=== PATIENT | male | born 1945 | race Caucasian/White ===

== ENCOUNTER 2019-08-08 16:39 | Outpatient (REF) | payer BC, SELFPAY ==
[2019-08-08 18:39] LABS: ALT 29 U/L (16-63); Anion Gap 10.6 mmol/L (3-11); BUN 22 mg/dL (7-18); CO2 25.4 mmol/L (21.0-32.0); CREATININE 1.15 mg/dL (0.70-1.30); Calcium 8.7 mg/dL (8.5-10.1); Chloride 107 mmol/L (98-107); Glucose 115 mg/dL (74-106); LDL CHOLESTEROL 72 mg/dL (<100); Potassium 3.9 mmol/L (3.5-5.1); Sodium 143 mmol/L (136-145)
[2019-08-12 11:21] LABS: PSA, Screening 23.8 ng/mL (0.0-6.5)
== END 2019-08-08 16:59 ==
LOC: NCHCN 16:39
PROVIDERS: PCP Internal Medicine; Visit Provider Internal Medicine
DX: Z00.00 Encounter for general adult medical examination without abnormal findings (principal); E78.5 Hyperlipidemia, unspecified; E66.3 Overweight; Z12.5 Encounter for screening for malignant neoplasm of prostate
CPT/HCPCS: 80048; 83721; 84153; 84460

== ENCOUNTER 2021-04-08 16:31 | Outpatient (REF) | payer BC, SELFPAY ==
[2021-04-08 19:32] LABS: Abs Immature Grans 0.04 10^3/uL (0.0-0.06); Absolute Basophil Count 0.04 10^3/uL (0.0-0.2); Absolute Eosinophil Count 0.06 10^3/uL (0.0-0.7); Absolute Lymphocyte Count 0.37 10^3/uL (1.2-3.4); Absolute Neutrophil Count 3.54 10^3/uL (1.2-6.7); Basophils % 0.9; Eosinophils % 1.3; Immature Grans % 0.9; Lymphocytes % 8.3; MCH 18.8 pg (27.0-33.0); MCHC 26.4 % (32.0-36.0); MCV 71.1 fL (80-95); MPV 11.6 fL (8.0-11.0); Neutrophils % 79.6; Nucleated RBC 0 %; Platelet Count 274 10^3/uL (130-400); RBC 2.56 10^6/uL (4.36-5.78); RDW 19.1 % (11.8-14.1); RDW-SD 49.1 fL; WBC 4.45 10^3/uL (4.4-10.8)
[2021-04-08 19:39] LABS: ALT 16 U/L (16-63); AST 14 U/L (15-37); Albumin 3.6 g/dL (3.4-5.0); Alkaline Phosphatase 86 U/L (46-116); Anion Gap 9.8 mmol/L (3-11); BUN 22 mg/dL (7-18); Bilirubin, Total 0.2 mg/dL (0.2-1.0); CO2 22.2 mmol/L (21.0-32.0); CREATININE 0.9 mg/dL (0.70-1.30); Calcium 8.3 mg/dL (8.5-10.1); Chloride 110 mmol/L (98-107); Glucose 113 mg/dL (74-106); Potassium 3.9 mmol/L (3.5-5.1); Sodium 142 mmol/L (136-145); Total Protein 6.5 g/dL (6.4-8.2)
[2021-04-08 19:52] LABS: HCT 18.2 % (40.0-50.0)
[2021-04-08 19:53] LABS: Diff Comment RBC Morph Reviewed; HGB 4.8 g/dL (13.5-17.5)
[2021-04-08 20:13] LABS: Anisocytosis 3+; Hypochromasia 3+
[2021-04-08 20:14] LABS: Microcytosis 3+; Poikilocytes 2+
== END 2021-04-08 16:32 | disposition home or self-care (01) ==
LOC: NCHCN 16:31
PROVIDERS: PCP Internal Medicine; Visit Provider Nurse Practitioner Family
DX: R42 Dizziness and giddiness (principal)
CPT/HCPCS: 80053; 85025

== ENCOUNTER 2021-04-08 21:53 | Observation (INO) | payer BC, SELFPAY ==
[2021-04-08] VITALS (22 sets, daily range): BP systolic 111–151; BP diastolic 43–72; PULSE 46–93; RESP 16–27; TEMP 36.7–36.8; O2SAT 97–100
--- NOTE | 2021-04-08 21:57 | W.ED.GENAD ---
Discharge Plan Disposition Patient Disposition: [facility] INPATIENT Condition: Fair Discharge Details Clinical Impression: Symptomatic anemia Primary Care Provider: Pete Vicente ED Provider: Pete Thorne [place] Meds and New Rx's Prescriptions: No Action tamsulosin [Flomax] 0.4 mg Capsule 0.4 mg PO DAILY RF: 0 simvastatin 20 mg Tablet 20 mg DAILY RF: 0 aspirin 81 mg Tablet 81 mg PO DAILY RF: 0 topiramate 200 mg Tablet 200 mg DAILY RF: 0 Medical Decision Making Patient has had a 2 to 3-week history of general unwell feeling with dyspnea with exertion. He had laboratory studies done today and was referred to ED for hemoglobin of 4. He denies black or bloody stool but reports he was Hemoccult positive in PCP office today. Will place IV and obtain labs including repeat hemoglobin to confirm, and type and screen. Patient consents to transfusion if needed. Hemoglobin confirmed to be 4.9. EKG with some LVH otherwise unremarkable. Other labs look okay. He is typed and screened and consented for for unit pRBC. Case discussed with hospitalist. Patient accepted to hospitalist service. Patient ordered for 4 units of pRBC will go to Med/Surg overnight. Medical Records Medical records reviewed: Yes I reviewed the patient's medical records. Medical records narrative: obtained from PCP office Lab Data Lab results reviewed: Yes I reviewed the patient's lab results. ECG Data Attestation: I personally reviewed and interpreted this ECG (s) as follows: Prior ECG tracings: not available for review Interpretation: see EKG HPI General Mode of arrival: wheelchair. Date/Time Provider Initiated Documentation: 04/08/21 21:56. Limitations to Documentation: no limitations. Information obtained by: patient and RN notes reviewed. HPI Narrative: Patient presents to ED on referral from primary care coverage with a hemoglobin of 4. Patient had been seen by primary care today for general malaise, fatigue, weakness, difficulty with exertion. Subsequently sent for labs and on-call physician called this evening with a hemoglobin of 4. Patient denies any black or dark stool but report Hemoccult positive in the office today. Patient has been using Advil fairly regularly because of headaches. He denies any chest pain or tightness. He denies any abdominal pain or vomiting. He denies any fever or cough. Related Data Home Medications Medication Instructions Recorded Confirmed aspirin 81 mg PO DAILY 04/08/21 04/08/21 simvastatin 20 mg DAILY 04/08/21 04/08/21 tamsulosin [Flomax] 0.4 mg PO DAILY 04/08/21 04/08/21 topiramate 200 mg DAILY 04/08/21 04/08/21 Allergies Allergy/AdvReac Type Severity Reaction Status Date / Time No Known Allergies Allergy Unverified 04/08/21 22:03 Review of Systems Narrative: 05/27 Review of Systems completed and is negative except as stated above in HPI (Systems reviewed: Const, Eyes, ENT, Resp, CV, GI, , MSK, Skin, Neuro) PFSH Medical History Hypercholesterolemia Migraine Prostate cancer Social History Smoking/Tobacco Use Status: Never Smoking risk assessment performed?: Yes Alcohol Intake: never Drug use: Never Substance use type: does not use Do you feel safe at home: Yes Do you feel safe in your relationship?: Yes Exam Narrative Exam Narrative: Const: WDWN elderly male in NAD. HEENT: NC/AT. Normal facial exam. Eyes: Pale conjunctiva. Neck: Supple. Trachea midline. Lungs: Normal respiratory effort. Lungs are clear. Cor: RRR without murmur/gallop. Good radial pulses. GI: Soft. NT/ND. No guarding or rebound. Neuro: A+O x 3. Normal speech, mentation. Cranial nerves II - XII grossly intact. No gross motor or sensory deficit. Ext: No C/C/E. Skin: Warm and dry without rash.
--- NOTE | 2021-04-08 22:00 | RT.EKG_ITS ---
APPROVED REPORT Exam: Resting ECG Reason for Exam: weakness Patient Location: E HR:77 bpm ECG Measurements Heart Rate 77 AXIS ME 194 P 44 QRSd 105 QRS 2 QT 392 T -14 QTc 443 Conclusion Sinus rhythm...normal P axis, V-rate 60- 99 Probable left ventricular hypertrophy...multiple LVH criteria Normal [place] I have reviewed and interpreted ECG and agree with software generated interpretation.
[2021-04-08 22:29] LABS: HCT 18.3 % (40.0-50.0); HGB 4.9 g/dL (13.5-17.5)
[2021-04-08 22:38] LABS: INR 1.1 (0.9-1.1); Prothrombin Time 10.8 sec (9.3-11.0)
[2021-04-08 23:04] LABS: ALT 17 U/L (16-63); AST 12 U/L (15-37); Albumin 3.7 g/dL (3.4-5.0); Alkaline Phosphatase 94 U/L (46-116); Anion Gap 11.6 mmol/L (3-11); BUN 22 mg/dL (7-18); Bilirubin, Total 0.2 mg/dL (0.2-1.0); CO2 20.4 mmol/L (21.0-32.0); CREATININE 1.1 mg/dL (0.70-1.30); Calcium 8.3 mg/dL (8.5-10.1); Chloride 108 mmol/L (98-107); Glucose 136 mg/dL (74-106); Potassium 3.4 mmol/L (3.5-5.1); Sodium 140 mmol/L (136-145); Troponin I < 0.05 ng/mL (<0.06)
[2021-04-08 23:21] LABS: Source Nasal/Nares
--- NOTE | 2021-04-08 23:56 | W.PM.HP.N ---
Date of service: 04/08/21 Time of Service: 23:34 Assessment and Plan Assessment and plan (1) Symptomatic anemia: Status: Acute Assessment and plan: GI bleed of uncertain time course. Last hgb was 15 about 8 years ago. Likely subacute as no bleeding noted. EKG and troponin reassuring that the stress isn't causing a cardiac event. Transfusion protocol already started in the ED. Follow up hgb 2 hours after transfusions. No h/o CHF, but we should montitor fluid status. He has no known cardiac history. with FOB positive GI bleed likely cause. BUN up slightly. He has stopped NSAIDs, will cover with PPI for now. Consult surgery to consider EGD/colo - urgency depending on his response to transfusion and stability. (2) Prostate cancer: Status: Chronic Assessment and plan: Treated in past, no symptoms to suggest recurrence. 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 (3) Migraine: Status: Chronic Assessment and plan: some increased HERNANDEZ this week, but this is chronic, benign neurologic exam today. Continue topiramate. (4) DVT prophylaxis: Status: Acute Assessment and plan: Holding ASA and not blood thinners due to likely GI bleed. TEDs/SCDs (5) Discharge planning issues: Status: Acute Assessment and plan: stable hemodynamically here. No active bleeding, so I think he will be safe on the floor. He is full code. History of Present Illness History of Present Illness Chief Complaint: dyspnea on exertion, fatigue Narrative: 75 yo M, history of prostate cancer treated in 2019 with radiation therapy, history of migraines, who presented to his primary care this morning with at least 3 weeks of dyspenea on exertion, general fatigue, and lightheadedness with standing or bending over. It seemed to be getting worse. He also describes feeling his heart beating in his ears. Initial evaluation in the clinic included a reassuring EKG but was notable for occult blood in stool on rectal exam. He was orthostatic with pulse rising from 59 to 85 from lying to standing, though there was not a significant blood pressure drop. Labs were drawn. He was later called by the on-call clinician for a hemoglobin of 4.8 and told to go to the emergency room. He denies any visible blood in the stool or melena, or other bleeding. He has been taking 600mg ibuprofen 2-3 x day for the past week as his chronic headaches have been worse. Bilateral frontal headaches. He hasn't felt nausea or abdominal pain or relflux. He hasn't had chest pain, though he does feel like his heart is beating faster. Of note, he has never had a colonoscopy. He denies any history of ulcers. Review of Systems Constitutional Constitutional: Denies anorexia, Denies chills, Reports fatigue, Denies fever(s), Reports headache(s), Reports lethargy, Denies poor appetite and Denies weight loss Eyes Eyes: Denies change in vision, Denies irritation, Denies eye pain and Denies spots in vision ENT Ears, Nose, Mouth, and Throat: Denies abnormal hearing, Denies vertigo, Reports dizziness, Denies otalgia, Reports headache(s), Denies nasal congestion, Denies nasal discharge, Denies sinus pain and Denies sore throat Cardiovascular Cardiovascular: Reports lightheadedness, Denies palpitations, Reports dyspnea on exertion and Denies orthopnea Respiratory Respiratory: Denies cough, Denies excessive phlegm production, Reports dyspnea on exertion and Denies wheezing Gastrointestinal Gastrointestinal: Denies abdominal pain, Denies melena, Denies constipation, Denies early satiety, Denies dyspepsia, Denies heartburn, Denies diarrhea, Denies nausea and Denies vomiting Genitourinary Genitourinary: Denies hematuria, Denies dysuria and Denies urinary incontinence Musculoskeletal Musculoskeletal: Denies back pain and Denies arthralgias Integumentary/Breasts Skin/Breast: Denies bleeding lesions, Denies rash, Denies skin ulcer, Denies unusual bruising and Denies jaundice Neurologic Neurologic: Denies abnormal hearing, Denies vertigo, Reports dizziness, Reports headache(s), Denies localized weakness and Denies sensory deficit Psychiatric Psychiatric: Denies mood swings and Denies panic attacks Endocrine Endocrine: Reports fatigue and Denies palpitations Hematologic/Lymphatic Hematologic/Lymphatic: Denies easy bleeding Allergic/Immunologic Allergic/Immunologic: Denies wheezing PFSH Medical History Hypercholesterolemia Migraine Prostate cancer Social History Smoking/Tobacco Use Status: Never Smoking risk assessment performed?: Yes Alcohol Intake: never Drug use: Never Substance use type: does not use Agree to transfusion: Yes Do you feel safe at home: Yes Do you feel safe in your relationship?: Yes Additional Social history: Lives with Tal on farm in [facility]. 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 Meds Allergies and Home Medications Allergies Allergy/AdvReac Type Severity Reaction Status Date / Time No Known Allergies Allergy Unverified 04/08/21 22:03 Home Medications Medication Instructions Recorded Confirmed Type aspirin 81 mg PO DAILY 04/08/21 04/08/21 History simvastatin 20 mg DAILY 04/08/21 04/08/21 History tamsulosin [Flomax] 0.4 mg PO DAILY 04/08/21 04/08/21 History topiramate 200 mg DAILY 04/08/21 04/08/21 History Exam Narrative Exam Narrative: GEN: Alert and oriented, pleasent and cooperative, gives linear history. No acute distress at rest. HEENT: Head atraumatic. Conjunctiva clear, no icterus. PEERL, EOMI. no rhinorrhea. MMM, OP benign. Neck is supple with no masses or lymphadenopathy, trachea midline. Spontaneous venous pulsations noted on direct ophthalmologic retinal exam. LUNGS: CTAB with normal effort CV: RRR with no murmurs, gallops, or rubs. ABD: +BS, soft, NT/ND. no masses or HSM EXT: no cyanosis, clubbing. trace cinthia ankle edema. legs not tender. MSK: No joint redness or swelling NEURO: CN 2-12 grossly intact. Visual field intact to controntation. Nl FNF. Negative pronator drift. Normal sensation, normal movement of 4 extremities. Mild tremor intermittently when using hands. Normal speech, other than intermittent stutter. Normal coordination SKIN: No rashs or open wounds. pale PSYCH: normal mood, slightly anxious affect. Results Imaging EKG: report reviewed and image reviewed (no signs ischemia, NSR) Labs Result diagrams: 04/08/21 22:04 04/08/21 22:04 Labs: Laboratory Results - last 24 hr 04/08/21 04/08/21 04/08/21 22:04 22:04 22:04 Hgb 4.9 L* Hct 18.3 L* PT INR Sodium 140 Potassium 3.4 L Chloride 108 H Carbon Dioxide 20.4 L Anion Gap 11.6 H BUN 22 H Creatinine 1.1 Estimated GFR/1.73 m2 >= 60.00 Glucose 136 H Calcium 8.3 L Magnesium 2.0 Total Bilirubin 0.2 AST 12 L ALT 17 Alkaline Phosphatase 94 Troponin I < 0.05 Total Protein 7.0 Albumin 3.7 COVID-19 Source Patient ABO/Rh Antibody Screen Crossmatch 04/08/21 04/08/21 04/08/21 22:04 22:11 23:17 Hgb Hct PT 10.8 INR 1.1 Sodium Potassium Chloride Carbon Dioxide Anion Gap BUN Creatinine Estimated GFR/1.73 m2 Glucose Calcium Magnesium Total Bilirubin AST ALT Alkaline Phosphatase Troponin I Total Protein Albumin COVID-19 Source Nasal/Nares Patient ABO/Rh O Positive Antibody Screen NEGATIVE Crossmatch See Detail Last Vital Signs Temp 36.8 C 04/08/21 23:42 Pulse 63 04/08/21 23:42 Resp 16 04/08/21 23:42 BP 127/61 04/08/21 23:42 Pulse Ox 98 04/08/21 23:42
[2021-04-09] VITALS (25 sets, daily range): BP systolic 89–147; BP diastolic 48–80; PULSE 51–99; RESP 16–22; TEMP 36.3–37.4; O2SAT 67–100; BMI 31.3
[2021-04-09 00:12] LABS: COVID-19 PCR Negative (Negative)
[2021-04-09] MEDS: Topiramate 100 MG TAB 200 MG PO ×2 (01:21→21:27)
--- NOTE | 2021-04-09 08:07 | W.SURGCON ---
[facility] Medical History Hypercholesterolemia Migraine Prostate cancer Social History Smoking/Tobacco Use Status: Never Smoking risk assessment performed?: Yes Alcohol Intake: never Drug use: Never Substance use type: does not use Agree to transfusion: Yes Do you feel safe at home: Yes Do you feel safe in your relationship?: Yes Additional Social history: Lives with Tal on farm in [facility]. 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 Results Last Vital Signs Temp 37.4 C 04/09/21 07:18 Pulse 60 04/09/21 07:18 Resp 22 04/09/21 07:18 BP 116/63 04/09/21 07:18 Pulse Ox 96 04/09/21 07:18 Labs Result diagrams: 04/08/21 22:04 04/08/21 22:04 Labs: Laboratory Results - last 24 hr 04/08/21 04/08/21 04/08/21 22:04 22:04 22:04 Hgb 4.9 L* Hct 18.3 L* PT INR Sodium 140 Potassium 3.4 L Chloride 108 H Carbon Dioxide 20.4 L Anion Gap 11.6 H BUN 22 H Creatinine 1.1 Estimated GFR/1.73 m2 >= 60.00 Glucose 136 H Calcium 8.3 L Magnesium 2.0 Total Bilirubin 0.2 AST 12 L ALT 17 Alkaline Phosphatase 94 Troponin I < 0.05 Total Protein 7.0 Albumin 3.7 COVID-19 Source SARS-CoV-2 (PCR) Patient ABO/Rh Antibody Screen Crossmatch 04/08/21 04/08/21 04/08/21 22:04 22:11 23:17 Hgb Hct PT 10.8 INR 1.1 Sodium Potassium Chloride Carbon Dioxide Anion Gap BUN Creatinine Estimated GFR/1.73 m2 Glucose Calcium Magnesium Total Bilirubin AST ALT Alkaline Phosphatase Troponin I Total Protein Albumin COVID-19 Source Nasal/Nares SARS-CoV-2 (PCR) Negative Patient ABO/Rh O Positive Antibody Screen NEGATIVE Crossmatch See Detail
--- NOTE | 2021-04-09 08:34 | SCONE_ITS ---
Assessment and Plan Assessment and plan (1) Symptomatic anemia: Status: Acute Assessment and plan: A// 75 y/o male with anemia, Hgb 4. Awaiting recheck following 4 units of PRBC. DDX- Radiation proctitis vs GI Bleed following heavy NSAID use Patient has never had a Colonoscopy. He denies having any bowel habit changes. Recent radiation treatments for Prostate Cancer. He denies having any abdominal pain, dyspnea or chest pain. Continue NPO status -Discussed colonoscopy bowel prep as well as the procedure. Discussed possible complications of the procedure to include bleeding, pain, perforation, missed small lesion/polyp, sore throat, aspiration and adverse reaction to the medications. Questions were answered to patient?s satisfaction. No guarantees were implied or given. -Discussed Upper endoscopy procedure and the need to be NPO prior. Discussed possible complications of the procedure to include bleeding, pain, perforation, missed small lesion/polyp/ulcers, sore throat, aspiration and adverse reaction to the medications or sedation. Questions were answered to patient?s satisfaction. No guarantees were implied or given. At this time the patient declines proceeding with EGD or Colonoscopy. He wishes to hold off on this given his concerns for sedation. Reassured the patient this decision is his to make and that if he changes his mind, that we can revisit this conversation. P// Will continue to follow, await Hgb recheck. History of Present Illness History of Present Illness Chief Complaint: Anemia Narrative: 75 y/o male with a history of prostate cancer and migraines presented to the ER for complaints of 2-3 weeks of feeling unwell and dyspnea with exertion. He was found to have a hemoglobin of 4. He was admitted for 4 units of packed RBCs. This morning he reports feeling better. He admits to having had a recent rectal exam with his PCP, which was remarkable for blood. He denies noting any black tarry or bloody stools. Also, of note he reports recent completion of radiation treatments to his prostate, which he has been under going for the past 8 months. He describes having frequent headaches as of late and has been taking quite a bit of advil to relieve his symptoms. He states that for the past 3 weeks he has not been able to walk out to his barn, which was a significant change for him. Denies smoking, tobacco use, ETOH use, Marijuana or any other recreational or illegal substances use. He states that he has had very bad experiences previously with anesthesia, at [facility]. He states that he went blind for several weeks following the sedation and he does not wish to proceed with any procedures which will require sedation, unless he absolutely has to. [facility] Medical History Hypercholesterolemia Migraine Prostate cancer Social History Smoking/Tobacco Use Status: Never Smoking risk assessment performed?: Yes Alcohol Intake: never Drug use: Never Substance use type: does not use Agree to transfusion: Yes Do you feel safe at home: Yes Do you feel safe in your relationship?: Yes Additional Social history: Lives with Tal on farm in [facility]. 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 Exam Const General: cooperative and comfortable Orientation: alert and oriented x3 Resp Effort & Inspection: normal respiratory effort, no audible wheezes and no cough GI Inspection: normal to inspection Palpation: soft, no guarding and nontender Auscultation: normal bowel sounds Results Last Vital Signs Temp 37.4 C 04/09/21 07:18 Pulse 60 04/09/21 07:18 Resp 22 04/09/21 07:18 BP 116/63 04/09/21 07:18 Pulse Ox 96 04/09/21 07:18 Labs Result diagrams: 04/08/21 22:04 04/08/21 22:04 Labs: Laboratory Results - last 24 hr 04/08/21 04/08/21 04/08/21 22:04 22:04 22:04 Hgb 4.9 L* Hct 18.3 L* PT INR Sodium 140 Potassium 3.4 L Chloride 108 H Carbon Dioxide 20.4 L Anion Gap 11.6 H BUN 22 H Creatinine 1.1 Estimated GFR/1.73 m2 >= 60.00 Glucose 136 H Calcium 8.3 L Magnesium 2.0 Total Bilirubin 0.2 AST 12 L ALT 17 Alkaline Phosphatase 94 Troponin I < 0.05 Total Protein 7.0 Albumin 3.7 COVID-19 Source SARS-CoV-2 (PCR) Patient ABO/Rh Antibody Screen Crossmatch 04/08/21 04/08/21 04/08/21 22:04 22:11 23:17 Hgb Hct PT 10.8 INR 1.1 Sodium Potassium Chloride Carbon Dioxide Anion Gap BUN Creatinine Estimated GFR/1.73 m2 Glucose Calcium Magnesium Total Bilirubin AST ALT Alkaline Phosphatase Troponin I Total Protein Albumin COVID-19 Source Nasal/Nares SARS-CoV-2 (PCR) Negative Patient ABO/Rh O Positive Antibody Screen NEGATIVE Crossmatch See Detail
--- NOTE | 2021-04-09 08:54 | INITIAL_ITS ---
- If Service Date Differs Date of service: 04/09/21 Time of Service: 08:54 Care Management Initial Assess REASON FOR HOSPITALIZATION:: anemia PAST MEDICAL HISTORY/PAST SURGICAL HISTORY:: Medical History . Hypercholesterolemia. Migraine. Prostate cancer PREVIOUS FUNCTIONAL STATUS/SOCIAL/FAMILY SUPPORTS:: Yudi, who prefers to be called Nabeel, lives in a single family home with his Queenie in [place], [place] 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 Nabeel and Queenie do not have any children. He is independent at baseline and receives no services. CURRENT FUNCTIONAL STATUS:: Nabeel was sitting up in bed when CM met with him. He was trying to decide whether or not to have an EGD today. He was admitted last evening with symptomatic anemia; his H&H was 4.9 and 18.3.Nabeel had a very traumatic experience many years ago following anesthesia and he was concerned that the same thing would happen. It involved left sided weakness and profound confusion which lasted for quite some time. He had several episodes with extensive workups that were unable to identify a cause. After speaking to his doctor and his , Nabeel decided to go proceed as it is important to determine the cause of his anemia. ADVANCE DIRECTIVES:: none on file Has patient been provided with info about the portal/API?: Yes Did the patient sign up for the portal?: No CODE STATUS:: Full Code INSURANCE COVERAGE / FINANCIAL ISSUES:: BS CURRENT HOME/COMMUNITY SERVICES/EQUIPMENT:: none PRIMARY CARE PHYSICIAN:: Pete Vicente POTENTIAL DISCHARGE NEEDS:: Follow up with PCP and plan of care PATIENT/FAMILY EDUCATION NEEDS:: Review of discharge instructions, medications, follow up care, limitations, activity and Ask Me Three TRANSPORTATION:: via private vehicle with . PLAN:: Nabeel will likley be discharged home with no new services. He will follow up with his community providers and plan of care and transport with family. CM will continue to support Nabeel and his and assess for discharge planning concerns.
[2021-04-09] MEDS: Simvastatin 20 MG TAB PO (09:20)
[2021-04-09] MEDS: Normal Saline Flush 10 ML SYR IVP ×2 (09:20→15:54)
[2021-04-09] MEDS: Pantoprazole 40 MG VIAL IVP (09:20)
--- NOTE | 2021-04-09 09:33 | W.ANESPRE ---
General Info Date of Service Date Performed: 04/09/21 Height: 5 ft 10 in Weight: 99 kg Body Mass Index (BMI): 31.3 Meds Allergies and Home Medications Allergies Allergy/AdvReac Type Severity Reaction Status Date / Time No Known Allergies Allergy Unverified 04/08/21 22:03 Home Medication Medication Instructions Recorded aspirin 81 mg PO DAILY 04/08/21 simvastatin 20 mg DAILY 04/08/21 tamsulosin [Flomax] 0.4 mg PO DAILY 04/08/21 topiramate 200 mg DAILY 04/08/21 Current Visit Medications: Current Medications Generic Name Dose Route Start Last Admin Trade Name Freq PRN Reason Stop Dose Admin Dimethicone/Zinc Oxide 0 gm 04/08/21 23:46 Ignacio Protect Cream 142 Gm Tube TP PRN PRN Sodium Chloride 500 mls @ 0 mls/hr 04/08/21 22:07 Saline 500ml Bag IV PRN PRN As Directed IV Miscellaneous Supplies 1 each 04/08/21 22:15 Iv Access IV DIRECTED KE Pantoprazole Sodium 40 mg 04/09/21 08:30 04/09/21 09:20 Pantoprazole 40 Mg Vial IVP 40 mg DAILY KE Administration Simvastatin 20 mg 04/09/21 08:30 04/09/21 09:20 Simvastatin 20 Mg Tab PO 20 mg DAILY KE Administration Sodium Chloride 0 ml 04/08/21 22:07 04/09/21 09:20 Normal Saline Flush 10 Ml Syr IVP 10 ml PRN PRN Administration Tamsulosin HCl 0.4 mg 04/09/21 22:00 Tamsulosin 0.4 Mg Capcr PO HS KE Topiramate 200 mg 04/09/21 01:00 04/09/21 01:21 Topiramate 100 Mg Tab PO 200 mg HS KE Administration PFSH Active Problems Active Problems: Problem Status Onset Code Discharge planning issues Z02.9 DVT prophylaxis Z29.9 Symptomatic anemia D64.9 Prostate cancer C61 Migraine G43.909 Hypercholesterolemia E78.00 Medical History Medical History Hypercholesterolemia Migraine Prostate cancer Tobacco Smoking/Tobacco Use Status: Never Alcohol Alcohol Intake: never Substance Use Substance use: Never Substance use type: does not use Vital Signs and Lab Results Vital Signs Most Recent Vital Signs in EMR: Most Recent Vital Signs Temp Pulse Resp BP Pulse Ox 37.4 C 60 22 116/63 96 04/09/21 07:18 04/09/21 07:18 04/09/21 07:18 04/09/21 07:18 04/09/21 07:18 Lab Results Result Diagrams: 04/09/21 09:34 04/09/21 09:34 Blood Type / Crossmatch: Patient ABO/Rh O Positive 04/08/21 22:11 04/08/21 Antibody Screen NEGATIVE 04/08/21 22:11 04/08/21 Crossmatch See Detail 04/08/21 22:11 04/08/21 Complete Blood Count: White Blood Count 4.45 10^3/uL (4.4-10.8) 04/08/21 16:00 04/08/21 Red Blood Count 2.56 10^6/uL (4.36-5.78) L 04/08/21 16:00 04/08/21 Hemoglobin 8.1 g/dL (13.5-17.5) L 04/09/21 09:34 04/09/21 Hematocrit 26.6 % (40.0-50.0) L 04/09/21 09:34 04/09/21 Platelet Count 274 10^3/uL (130-400) 04/08/21 16:00 04/08/21 Complete Metabolic Panel: Sodium Level 141 mmol/L (136-145) 04/09/21 09:34 04/09/21 Potassium Level 3.8 mmol/L (3.5-5.1) 04/09/21 09:34 04/09/21 Chloride Level 110 mmol/L (98-107) H 04/09/21 09:34 04/09/21 Carbon Dioxide Level 20.4 mmol/L (21.0-32.0) L 04/09/21 09:34 04/09/21 Blood Urea Nitrogen 16 mg/dL (7-18) 04/09/21 09:34 04/09/21 Creatinine 1.0 mg/dL (0.70-1.30) 04/09/21 09:34 04/09/21 Estimated GFR/1.73 m2 >= 60.00 (mL/min/1.73m2) 04/09/21 09:34 04/09/21 Magnesium Level 2.0 mg/dL (1.8-2.4) 04/08/21 22:04 04/08/21 Calcium Level 8.4 mg/dL (8.5-10.1) L 04/09/21 09:34 04/09/21 Albumin 3.7 g/dL (3.4-5.0) 04/08/21 22:04 04/08/21 Glucose Level 107 mg/dL (74-106) H 04/09/21 09:34 04/09/21 Liver Function Panel: Alanine Aminotransferase (ALT/SGPT) 17 U/L (16-63) 04/08/21 22:04 04/08/21 Aspartate Amino Transf (AST/SGOT) 12 U/L (15-37) L 04/08/21 22:04 04/08/21 Coagulation Panel: INR International Normalized Ratio 1.1 (0.9-1.1) 04/08/21 22:04 04/08/21 Prothrombin Time 10.8 sec (9.3-11.0) 04/08/21 22:04 04/08/21 Cardiac Panel: Troponin I < 0.05 ng/mL (<0.06) 04/08/21 22:04 04/08/21 Arterial Blood Gas: No Data to Display Venous Blood Gas: No Data to Display Pancreas Panel: No Data to Display Thyroid Panel: No Data to Display Infectious Disease: Coronavirus (COVID-19)(PCR) Negative (Negative) 04/08/21 23:17 04/08/21 Coronavirus 2019 Source Nasal/Nares 04/08/21 23:17 04/08/21 Blood Cultures: No Data to Display Toxicology Panel: No Data to Display Imaging and Studies Imaging and Studies EKG Summary: 04/08/2021: Conclusion Sinus rhythm...normal P axis, V-rate 60- 99 Probable left ventricular hypertrophy...multiple LVH criteria Normal Follansbee I have reviewed and interpreted ECG and agree with software generated interpretation. Anesthesia Assessment and Plan Anesthesia History Personal History: No History of Anesthesia Complications Family History: No Family History of Anesthesia Complications Exercise Tolerance Exercise Tolerance: Metabolic Equivalents>4 Pertinent Negatives Pertinent Negatives: No Symptoms of GERD Cardiac & Pulmonary Exam Cardiac Exam: Normal S1/S2 Heart Sounds Pulmonary Exam: Clear Bilateral Breath Sounds Airway Exam Known Difficult Airway: No Mallampati Class: 2 Mouth Opening: Normal (> 3cm) Thyromental Distance: Greater than 3 cm Neck Range of Motion: Full ROM Neck Circumference: Normal Teeth Condition: Removable Dentures/Plates Upper ASA Classification ASA Score: ASA 2 Emergency Case?: Yes NPO Status NPO Status: NPO Clears >2 hours, Solids >8 hours Anesthesia Plan Resuscitation Status: Full Code Anesthesia Technique: General Anesthesia Airway Planned: Natural Airway Monitors Used: Standard Monitors
[2021-04-09 09:43] LABS: HCT 26.6 % (40.0-50.0); HGB 8.1 g/dL (13.5-17.5)
[2021-04-09 09:52] LABS: Anion Gap 10.6 mmol/L (3-11); BUN 16 mg/dL (7-18); CO2 20.4 mmol/L (21.0-32.0); Calcium 8.4 mg/dL (8.5-10.1); Chloride 110 mmol/L (98-107); Glucose 107 mg/dL (74-106); Potassium 3.8 mmol/L (3.5-5.1); Sodium 141 mmol/L (136-145)
[2021-04-09] MEDS: Lactated Ringers 1,000 ML 100 ML IV (14:20)
--- NOTE | 2021-04-09 14:45 | STOM_PTH ---
PATIENT: Yudi Curry LOC: [id number]#:[id number] AGE/SX: 75/M ROOM: 208 RE04/08/[address]: Levi Hartmann : 1945 BED: A DIS: 04/10/2021 SPEC #: [id number] RECD: 04/09/21 16:25 STATUS: ALEKSANDAR REQ #: [id number] GENOVEVA: 04/09/21 14:[address]: Levi Hartmann DEPT: Surgical Specimen RECD BY: Reanna Martin ENTERED: 04/09/21 16:30 SP TYPE: STOMACH OTHR DR: DOTTIE Fuentes PA Anthony Campbell Cole,MD Khang Catalan, MD Danica López, Disha Stacy MD Leung,MD Cory Portillo MD Primeau,Pete Zhu,Sydney Tran, DO Tissues: 1 - BIOPSY BOWEL 2 - BIOPSY BOWEL 3 - STOMACH BIOPSY 4 - HERNIA SAC,OTHER 5 - STOMACH BIOPSY 6 - STOMACH BIOPSY 7 - ESOPHAGUS BIOPSY Procedures: SPECIAL STAIN 2 GROSS AND MICRO LEVEL 4 IMMUNOPEROXIDASE STAIN Comments: [id number]
--- NOTE | 2021-04-09 15:00 | W.PM.ENDDOP ---
Date of service: 04/09/21 Time of Service: 15:00 Endoscopy Report DATE OF PROCEDURE: 04/09/21 PRE-OP DIAGNOSIS: anemia POST-OP DIAGNOSIS: other (Duodenitis/gastritis/gastric ulceration/hiatal hernia/esophagitis/esophageal ulcers) PROCEDURE: EGD and biopsy SURGEON: Sydney Zhu ANESTHESIA TYPE: General:No Airway ESTIMATED BLOOD LOSS: 2 PATHOLOGY: other COMPLICATIONS: None DISPOSITION: PACU PROCEDURE DESCRIPTION: After informed consent was obtained the patient was take to the procedure room and placed in a supine position. Monitors were applied and a time out was done. The patients name, date of , procedure type, allergies to medications and metal in their body was reviewed. A bite block was placed and the patient was sedated. Once sedated and comfortable the gastroscope was advanced through the oropharynx which was grossly normal into the esophagus. The proximal and mid-esophagus were nl. In the distal esophagus there was a 2 cm sliding-type hiatal hernia. GE junction is at 40 cm. The hiatal hernia is at 38 cm. He has multiple ulcerations in the distal esophagus and esophagitis. There is no esophageal varices or stricture. The scope was advanced into the stomach and through the pylorus into the 3rd portion of the duodenum. The duodenum was noted to have severe duodenitis. No active duodenal ulcers.. Biopsies were done-all specimens are retrieved and no bleeding is noted the scope was retracted back into the stomach and biopsies were done to rule out H. pylori. There is gastritis in the upper cardia portion of the stomach. There are multiple polyps punctate ulcers. There is no active bleeding. The scope was retroflexed. The antrum is noted to be normal. There is a 2cm sliding hiatal hernia note at 38cm. Biopsy was taken of the hiatal hernia. the scope was retracted back into the esophagus and biopsies were done of the GE junction to rule out Long's. The Z line was irregular. The GE junction was at 40 cm. The scope was removed and the patient was woken up and taken back to PACU in stable condition. -no further ASA -no further NSADI's -lifelong PPI -carafate for 6wks -CE as outpt for completeness
--- NOTE | 2021-04-09 15:23 | W.ANESPOSTOP ---
Postoperative Evaluation Date, Time and Location Date Performed: 04/09/21 Time Performed: 15:00 Patient Location: PACU Vital Signs Most Recent Imported Vital Signs: Most Recent Vital Signs Temp Pulse Resp BP Pulse Ox 36.7 C 58 L 22 102/60 98 04/09/21 15:03 04/09/21 15:03 04/09/21 15:03 04/09/21 15:03 04/09/21 15:03 Pain Score Most Recent Pain Score: Most Recent Pain Score Pain Level 0 04/09/21 11:34 Assessment Mental Status: Awake (Alert & Oriented to Patient Baseline) Airway and Respiratory Function: Patent airway with normal (patient baseline) respiratory exam Cardiovascular Function: Hemodynamically Stable Hydration Status: Adequately Hydrated Nausea & Vomiting: No Nausea or Vomiting Pain: Pt. Denies Any Pain Peripheral Nerve Block: Patient did not receive a nerve block
[2021-04-09] MEDS: PANTOPRAZOLE 80 MG in Normal Saline 100 ML 10 MG IV (15:54)
--- NOTE | 2021-04-09 15:54 | CHAPLAIN ---
Yudi, who goes by Nabeel, was out of the room when I visited. I spoke with Queenie, and introduced myself, explained my role and offered support.
[2021-04-09] MEDS: Sucralfate 1 GM TAB PO ×2 (16:30→21:27)
[2021-04-09] MEDS: IRON SUCROSE COMPLEX 200 MG in Normal Saline 100 ML 400 MG IVPB (16:30)
--- NOTE | 2021-04-09 17:04 | W.PM.PROGNOT ---
Date of Service Date of service: 04/09/21 Time of Service: 17:04 Assessment and Plan Assessment and plan (1) Symptomatic anemia: Start date: 04/09/21 Start time: 17:06 Status: Acute Assessment and plan: GI bleed of uncertain time course. Last hgb was 15 about 8 years ago. Likely subacute as no bleeding noted. Received 4 units of blood. repeat h/h 8.1 [address] Trevizo, No bleeding ulcer however his stomach was not in good shape therefore he will stay overnight be on protonix drip, IVF and carafate, possible discharge in am. (2) Prostate cancer: Start date: 04/09/21 Start time: 17:57 Status: Chronic Assessment and plan: Treated in past, no symptoms to suggest recurrence. 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 (3) Migraine: Start date: 04/09/21 Start time: 17:57 Status: Chronic Assessment and plan: some increased HERNANDEZ this week, but this is chronic, benign neurologic exam today. Continue topiramate. Stop taking asa and ibuprofen f/u with neuro for migraines. (4) DVT prophylaxis: Start date: 04/09/21 Start time: 17:58 Status: Acute Assessment and plan: Holding ASA and not blood thinners due to likely GI bleed. TEDs/SCDs (5) Discharge planning issues: Start date: 04/09/21 Start time: 17:58 Status: Acute Assessment and plan: stable hemodynamically here. No active bleeding, He is full code. Dr. Hills Subjective Subjective Patient reports: other Interval history since last seen: Patient doing better after receiving 4 units. He had an EGD with Dr. Trevizo, Recommend staying over night on carafate, protonix drip, and fluids. he denies CP, SOB, N/v/D. Exam Narrative Exam Narrative: GEN: Alert and oriented, pleasent and cooperative. No acute distress at rest. HEENT: Head atraumatic. Conjunctiva clear, no icterus. PEERL, EOMI. no rhinorrhea. MMM, OP benign. Neck is supple with no masses or lymphadenopathy, trachea midline. Spontaneous venous pulsations noted on direct ophthalmologic retinal exam. LUNGS: CTAB with normal effort CV: RRR with no murmurs, gallops, or rubs. ABD: +BS, soft, NT/ND. no masses or HSM EXT: no cyanosis, clubbing. trace cinthia ankle edema. legs not tender. MSK: No joint redness or swelling NEURO: CN 2-12 grossly intact. Visual field intact to controntation. Nl FNF. Negative pronator drift. Normal sensation, normal movement of 4 extremities. Mild tremor intermittently when using hands. Normal speech, other than intermittent stutter. Normal coordination SKIN: No rashs or open wounds. pale PSYCH: normal mood, slightly anxious affect. Objective Last Vital Signs Temp 36.9 C 04/09/21 16:00 Pulse 52 L 04/09/21 16:00 Resp 16 04/09/21 16:00 BP 122/74 04/09/21 16:00 Pulse Ox 96 04/09/21 16:00 Laboratory Results - last 24 hr 04/08/21 04/08/21 04/08/21 22:04 22:04 22:04 Hgb 4.9 L* Hct 18.3 L* PT INR Sodium 140 Potassium 3.4 L Chloride 108 H Carbon Dioxide 20.4 L Anion Gap 11.6 H BUN 22 H Creatinine 1.1 Estimated GFR/1.73 m2 >= 60.00 Glucose 136 H Calcium 8.3 L Magnesium 2.0 Total Bilirubin 0.2 AST 12 L ALT 17 Alkaline Phosphatase 94 Troponin I < 0.05 Total Protein 7.0 Albumin 3.7 COVID-19 Source SARS-CoV-2 (PCR) Patient ABO/Rh Antibody Screen Crossmatch 04/08/21 04/08/21 04/08/21 22:04 22:11 23:17 Hgb Hct PT 10.8 INR 1.1 Sodium Potassium Chloride Carbon Dioxide Anion Gap BUN Creatinine Estimated GFR/1.73 m2 Glucose Calcium Magnesium Total Bilirubin AST ALT Alkaline Phosphatase Troponin I Total Protein Albumin COVID-19 Source Nasal/Nares SARS-CoV-2 (PCR) Negative Patient ABO/Rh O Positive Antibody Screen NEGATIVE Crossmatch See Detail 04/09/21 04/09/21 09:34 09:34 Hgb 8.1 L D Hct 26.6 L D PT INR Sodium 141 Potassium 3.8 Chloride 110 H Carbon Dioxide 20.4 L Anion Gap 10.6 BUN 16 D Creatinine 1.0 Estimated GFR/1.73 m2 >= 60.00 Glucose 107 H Calcium 8.4 L Magnesium Total Bilirubin AST ALT Alkaline Phosphatase Troponin I Total Protein Albumin COVID-19 Source SARS-CoV-2 (PCR) Patient ABO/Rh Antibody Screen Crossmatch
[2021-04-09] MEDS: Lactated Ringers 1,000 ML 125 ML IV (18:00)
[2021-04-09] MEDS: Tamsulosin 0.4 MG CAPCR PO (21:27)
[2021-04-10] MEDS: Lactated Ringers 1,000 ML 125 ML IV ×2 (01:41→09:41)
[2021-04-10 03:11] VITALS: BP 102/64; PULSE 56; RESP 15; TEMP 36.8; O2SAT 98
[2021-04-10] MEDS: Sucralfate 1 GM TAB PO ×2 (04:32→11:35)
[2021-04-10] MEDS: Normal Saline Flush 10 ML SYR IVP (04:33)
[2021-04-10] MEDS: PANTOPRAZOLE 80 MG in Normal Saline 100 ML 10 MG IV (04:33)
[2021-04-10 07:05] VITALS: BP 113/69; PULSE 52; RESP 18; TEMP 36.6; O2SAT 97
[2021-04-10 07:47] VITALS: BP 119/61; PULSE 64; RESP 16; TEMP 37.3; O2SAT 97
[2021-04-10] MEDS: Simvastatin 20 MG TAB PO (07:47)
[2021-04-10 08:20] LABS: HCT 26.4 % (40.0-50.0); HGB 7.8 g/dL (13.5-17.5)
--- NOTE | 2021-04-10 10:31 | W.PM.PROGNOT ---
Date of Service Date of service: 04/10/21 Time of Service: 10:31 Assessment and Plan Assessment and plan (1) Symptomatic anemia: Status: Acute Assessment and plan: HGb is stable at 7.8 (2) Gastritis and duodenitis: Status: Acute Assessment and plan: Severe inflammation of the stomach, duodenum and esophagus with ulcerations most likely due to his ibuprofen use. OK to D/C home. Should continue on Carafate x 2 weeks Should continue on PPI 40 mg BID Follow up with PCP for blood draw this week Follow up with Dr. Zhu on (3) PUD (peptic ulcer disease): Status: Chronic (4) Esophagitis determined by endoscopy: Status: Acute Subjective Subjective Interval history since last seen: Mr. Curry is doing well. He has no pain. He has no N/V. Exam Const General: cooperative, comfortable and no acute distress Orientation: alert and oriented x3 HENMT Head: normocephalic and atraumatic Resp Effort & Inspection: normal respiratory effort Auscultation: clear to auscultation bilaterally Cardio Rate: regular rate Rhythm: regular rhythm GI Palpation: soft, no hepatosplenomegaly and nontender Objective Last Vital Signs Temp 99.1 F 04/10/21 07:47 Pulse 64 04/10/21 07:47 Resp 16 04/10/21 07:47 BP 119/61 04/10/21 07:47 Pulse Ox 97 04/10/21 07:47 Laboratory Results - last 24 hr 04/10/21 08:05 Hgb 7.8 L Hct 26.4 L
--- NOTE | 2021-04-10 11:32 | W.PM.DS.N ---
Date of service: 04/10/21 Time of Service: 11:36 DS: Diagnosis Discharge Diagnosis (1) Symptomatic anemia: Start date: 04/10/21 Start time: 11:36 Status: Resolved Asessment and Plan: admitted with h/h 4 and 18 d/t ibuprofen use q 3 hours from HERNANDEZ. Admitted to m/s. 4 units PRBC transfused and EGD done with surgery. multiple ulcerations in the distal esophagus and esophagitis. There is no esophageal varices or stricture. duodenum was noted to have severe duodenitis. No active duodenal ulcers.. Biopsies were done-all specimens are retrieved and no bleeding is noted the scope was retracted back into the stomach and biopsies were done to rule out H. pylori. There is gastritis in the upper cardia portion of the stomach. There are multiple polyps punctate ulcers. There is no active bleeding He was placed on overnight Protonix gtt with carafate achs. He will need to stop all further asa, nsaids PPI lifelong BID, carafate x 6 weeks f/u with surgery on 04/15 @1300 he will have outpatient c-scope. Recommend repeat H/H on Monday, (this am h/h 7.8/26.4, likely dilutional as IVF overnight) with f/u on Mon with PCP (2) Gastritis and duodenitis: Start date: 04/10/21 Start time: 11:41 Status: Acute Asessment and Plan: as above (3) PUD (peptic ulcer disease): Start date: 04/10/21 Start time: 11:41 Status: Chronic Asessment and Plan: as above (4) Esophagitis determined by endoscopy: Start date: 04/10/21 Start time: 11:42 Status: Acute Asessment and Plan: as above discussed with Dr. Mcintosh Discharge Plan Disposition Patient Disposition: HOME Condition: Improving Discharge Details Reason For Visit: SYMPTOMATIC ANEMIA Admit Date/Time: 04/08/21 23:12 Admit Provider: Levi Hartmann Attending Provider: Levi Hartmann Primary Care Provider: [facility] Hospital Course: 75 y. male with hx of prostate cancer, migraines, admitted from [facility] ED for symptomatic anemia on admission hgb was 4.8/ hct 18.3. He presented to his pcp morning of admission with at least 3 weeks of feeling SOB, fatigue, and lightheaded when standing or bending. He was found to have occult blood in his exam, orthostatic, with pulse rise and labs drawn. He was later then called from his PCP to let him know to come to ED due to low h/h. Patient states he has had a lot of HERNANDEZ lately and takes ibuprofen apprx 3 tabs every 3 hours which likely attributed to his issues. He was admitted to m/s obs, given 4 units PRBC and surgery was consulted. EGD done yesterday (see diagnosis for results). He will need to further no longer take asa, ibuprofen or NSAIDs, we discussed him seeing a neurologist for HERNANDEZ if they are uncontrolled, and tylenol for pain. He is being discharged home today, he feels well, h/h stable, he should have this rechecked by Monday, with f/u on mon with PCP. F/u with Dr. Trevizo on 04/15 @ 1300. He will need to be on carafate for 6 weeks and PPI bid life long. He denies CP, SOB, N/V/d. Home Meds and New Rx's Prescriptions: New sucralfate 1 gram Tablet 1 g PO AC & HS Qty: 120 RF: 1 sucralfate [Carafate] 1 gram tablet 1 g PO QACHS Qty: 120 RF: 1 pantoprazole [Protonix] 40 mg tablet,delayed release (DR/EC) 40 mg PO BID Qty: 60 RF: 0 Continued tamsulosin [Flomax] 0.4 mg Capsule 0.4 mg PO DAILY RF: 0 simvastatin 20 mg Tablet 20 mg DAILY RF: 0 topiramate 200 mg Tablet 200 mg DAILY RF: 0 Discontinued aspirin 81 mg Tablet 81 mg PO DAILY RF: 0 Discharge Instructions Instructions: Sucralfate (By mouth), Pantoprazole (By mouth), Gastrointestinal Bleeding (GEN), Rectal Bleeding (DC) Additional Instructions: DO NOT TAKE ASPIRIN, IBUPROFIN, ALEVE OR ANY PRODUCT SIMILAR You can take tylenol but only 650 mg every 4 hours not to exceed 4000 mg in a 24 hour period If you continue to have headaches see a neurologist Follow up with Dr. Zhu on 04/15 at 1 pm We will call you with a follow up with your PCP Repeat your lab work on Monday Activity:: Activity as Tolerated Equipment/Supplies:: No Equipment Needed Diet:: As Tolerated Discharge Orders Other Ambulatory Orders: Complete Blood Count w/Diff (Routine) Location: None Selected Ordered By: Maggie Mayo DS: Summary Time Spent with Patient providing and/or coordinating discharge services: Less than 30 minutes Status at Discharge Functional status at discharge: independent ambulation Overall status at discharge: patient is back to baseline Mental Status: mental status grossly normal Speech and Movement: speech and movement normal Mood: congruent mood Affect: normal affect Exam Const General: cooperative, comfortable and no acute distress Nutritional Appearance: obese Orientation: alert, awake and oriented x3 Eyes Eyelids: eyelids normal Pupils: PERRL EOM: EOM intact bilaterally Neck Neck: normal visual inspection and no JVD Lymphatic: no lymphadenopathy noted Resp Effort & Inspection: normal respiratory effort Auscultation: clear to auscultation bilaterally Cardio Jugular venous pressure: no JVD Rhythm: regular rhythm Heart Sounds: S1 normal GI Auscultation: normal bowel sounds General: No CVA tenderness and deferred Skin General skin exam: no rashes or lesions noted Neuro General: patient alert, patient awake and patient oriented x3 Cognition: normal cognition Speech: speech normal Gait: normal gait Extrem General: normal to inspection, full ROM and no clubbing, cyanosis or edema Psych Mental Status: mental status grossly normal Speech and Movement: speech and movement normal Mood: congruent mood Affect: normal affect DS: Data Vitals/I&O Vitals and I&O: Vital Signs Temperature 37.3 C 04/10/21 07:47 Temperature Source Skin 04/10/21 07:47 Pulse 64 04/10/21 07:47 Pulse Rhythm Regular 04/10/21 07:50 Pulse 93 H 04/08/21 23:54 Respiratory Rate 16 04/10/21 07:47 Respiratory Effort Non-Labored 04/10/21 07:50 Respiratory Depth Normal 04/10/21 07:50 Respiratory Pattern Normal 04/10/21 07:50 Blood Pressure 119/61 04/10/21 07:47 Blood Pressure Mean 52 04/08/21 23:46 Blood Pressure Position Supine 04/08/21 21:57 Pulse Oximetry 97 04/10/21 07:47 Oxygen Delivery Method Room Air 04/10/21 07:47 Oxygen Flow Rate 0 04/10/21 07:47 Pain Level 0 04/10/21 07:05 Intake & Output 04/09/21 04/09/21 04/10/21 11:59 23:59 11:59 Intake Total 1332 / 2265.333 933.333 / 2265.333 2225.000 / 2225.000 Output Total 675 / 975 300 / 975 825 / 825 Balance 657 / 1290.333 633.333 / 2455.466 1877.000 / 1400.000 Weight 99 kg 99 kg 103.147 kg Intake: IV 693.333 / 793.023 8784.000 / 2225.000 Oral 240 / 240 Blood Product 1332 / 1332 Rbc Leuko Reduced Unit 349 / 349 [id number] Rbc Leuko Reduced Unit 376 / 376 [id number] Rbc Leuko Reduced Unit 307 / 307 [id number] Rbc Leuko Reduced Unit 300 / 300 [id number] Output: Urine 675 / 975 300 / 975 825 / 825 Other: Urine Color Yellow Yellow Yellow Urine Appearance Clear Clear Clear Urine Odor None None Stool Size Moderate Stool Characteristics Formed Emesis Description None Voiding Methods Toilet Toilet Urinal Data Completed and Pending Labs on day of discharge: Labs from last 24 hours 04/10/21 08:05 Hgb 7.8 L Hct 26.4 L PFSH Medical History Hypercholesterolemia Migraine Prostate cancer Social History Smoking/Tobacco Use Status: Never Smoking risk assessment performed?: Yes Alcohol Intake: never Drug use: Never Substance use type: does not use Agree to transfusion: Yes Do you feel safe at home: Yes Do you feel safe in your relationship?: Yes Additional Social history: Lives with Tal [place] [facility]. 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
[2021-04-10 15:27] VITALS: BP 96/61; PULSE 69; RESP 18; TEMP 36.8; O2SAT 92
== END 2021-04-10 15:50 | disposition home or self-care (01) ==
LOC: ER 23:46 → MS 04-09 00:20
PROVIDERS: Surgery; Admitting Provider Family Medicine; Emergency Provider Emergency Medicine; PCP Internal Medicine; Visit Provider Family Medicine
PROC: 0DJ68ZZ Inspection of Stomach, Via Natural or Artificial Opening Endoscopic (ICD-10-PCS; CPT 43235; principal; 2021-04-09 13:00)
DX: K25.4 Chronic or unspecified gastric ulcer with hemorrhage (principal); K29.81 Duodenitis with bleeding; K26.0 Acute duodenal ulcer with hemorrhage; K22.11 Ulcer of esophagus with bleeding; K29.71 Gastritis, unspecified, with bleeding; K22.70 Barrett's esophagus without dysplasia; D64.9 Anemia, unspecified; C61 Malignant neoplasm of prostate; G43.909 Migraine, unspecified, not intractable, without status migrainosus; R06.00 Dyspnea, unspecified; E78.00 Pure hypercholesterolemia, unspecified; R53.1 Weakness; K44.9 Diaphragmatic hernia without obstruction or gangrene; K31.7 Polyp of stomach and duodenum; Z20.822 Contact with and (suspected) exposure to COVID-19
CPT/HCPCS: 43239; 36415; 36430; 80048; 80053; 86850; 86900; 86901; 86920; 87635; 88305; 93005; 99285; 83735; 84484; 85014; 85018; 85610; 88302; 88313; 88361; 93010; 99217; 99226; G0378; J1756; P9016

== ENCOUNTER 2021-04-13 14:57 | Outpatient (REF) | payer BC, MEDICARE, SELFPAY ==
[2021-04-13 19:13] LABS: Abs Immature Grans 0.04 10^3/uL (0.0-0.06); Absolute Basophil Count 0.05 10^3/uL (0.0-0.2); Absolute Lymphocyte Count 0.49 10^3/uL (1.2-3.4); Absolute Monocyte Count 0.51 10^3/uL (0.1-0.8); Absolute Neutrophil Count 4.83 10^3/uL (1.2-6.7); Basophils % 0.8; Eosinophils % 1.7; HGB 8.5 g/dL (13.5-17.5); Immature Grans % 0.7; Lymphocytes % 8.1; MCH 23.1 pg (27.0-33.0); MCHC 29.3 % (32.0-36.0); MCV 78.8 fL (80-95); MPV 12.1 fL (8.0-11.0); Monocytes % 8.5; Neutrophils % 80.2; Nucleated RBC 0 %; Platelet Count 223 10^3/uL (130-400); RBC 3.68 10^6/uL (4.36-5.78); RDW 22.5 % (11.8-14.1); RDW-SD 62.8 fL; WBC 6.02 10^3/uL (4.4-10.8)
== END 2021-04-13 14:58 | disposition home or self-care (01) ==
LOC: LBN 14:57
PROVIDERS: Nurse Practitioner Family; PCP Internal Medicine; Visit Provider Internal Medicine
DX: D64.9 Anemia, unspecified (principal)
CPT/HCPCS: 85025

== ENCOUNTER → 2021-04-15 12:49 | Outpatient (BNVA) | payer MEDICARE, SELFPAY | PROVIDERS: PCP Internal Medicine; Referring Provider Internal Medicine; Visit Provider Surgery | DX: K20.90 Esophagitis, unspecified without bleeding (principal); K27.9 Peptic ulcer, site unspecified, unspecified as acute or chronic, without hemorrhage or perforation; K29.90 Gastroduodenitis, unspecified, without bleeding; D62 Acute posthemorrhagic anemia; M25.462 Effusion, left knee | CPT/HCPCS: 99213 ==

== ENCOUNTER 2021-05-13 11:56 | Outpatient (REF) | payer MEDICARE, SELFPAY ==
--- OUTSIDE RECORDS SUMMARY | 2021-05-13 11:59 | XMS_ITS ---
:1945 Author Care Team Providers Name Role Phone SUSSY WESTON MD Urologist [phone] HANSA LY MD Primary Care Provider [phone] Allergies Code Code System Name Reaction Severity Status Onset NKDA ? Medications Name Status Start Date Stop Date ? ? ceftriaxone 1 gram solution for injection Active ? Not available Take 1 g every day by injection route. levofloxacin 250 mg tablet Active ? Not a vailable Take 2 tablets every day by oral route for 1 day. levofloxacin 500 mg tablet Active ? Not a vailable Longs Adult Low Strength ASA 81 mg tablet,delayed release Active ? Not available Take 1 tablet every day by oral route. penicillin V potassium 500 mg tablet Completed ? 08/30/2019 Readi-Cat 2 2 % (w/v) oral suspension Active ? Not available simvastatin 20 mg tablet Active ? Not valerie ilable tamsulosin 0.4 mg capsule Active ? Not av ailable topiramate 200 mg tablet Active ? Not valerie ilable Problems Name Status Onset Date Source ? Hyperlipidemia Active 08/28/2019 ? Overweight Active 08/28/2019 ? Status Migrainosus Active 08/28/2019 ? Hypertensive Disorder Active 08/28/2019 ? 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 Benign Prostatic Hyperplasia Active 08/28/2019 ? 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 Disorder of Brain Active ? History Shoulder Joint Pain Active ? History Symptom of Skin and Integumentary Active ? History Tissue Headache Active ? History Aphasia Active ? History Procedures Date Name Performed by ? ? Appendectomy Information not avai lable ? Hernia Repair Information not avai lable Notes: left herniorrhaphy 09/13/2019 CT, Abdomen + Pelvis, W/ Contrast [facility] Radiology (Internal) [address] [place] [address] (Work Place) 09/13/2019 NM, Bone Scan, Whole Body [facility] Radiology (Internal) [address] [place] [address] (Work Place) 11/01/2019 Unlisted Imaging Order [facility] Rad[facility] (Internal) [address] [place] [address] (Work [address]) 11/01/2019 US, Guidance [facility] Rad[facility] (Internal) [address] [place] [address] (Work Place) Results Lab Results Date Name Specimen Result Interpretation Description Value Range Status Address ? 11/19/2019 Pathology TISS ? Report (see ? Final No [facility] Country Study below) Hospital ab (Internal) : [address] t 11/19/2019 Urinalysis, Urine ? Color Pale ? ? P _urology: 41 Dipstick, Yellow [facility] ? ? Urine ? Appearance Clear ? ? P_uro logy: 41 [facility] ? ? Urine ? Glucose Normal ? ? P_urolog y: 41 [facility] ? ? Urine ? Bilirubin Negative ? ? P_ur ology: 41 [facility] ? ? Urine ? Ketones Negative ? ? P_urol ogy: 41 [facility] ? ? Urine ? Specific 1.020 ? ? P_urolo gy: [address] [facility] ? ? Urine ? Blood Negative ? ? P_urolog y: 41 [facility] ? ? Urine ? Ph 5.0 ? ? P_urology: 41 [facility] ? ? Urine ? Protein Negative ? ? P_urol ogy: 41 [facility] ? ? Urine ? Urobilinogen 0.2 ? ? P_u rology: 41 [facility] ? ? Urine ? Nitrite negative ? ? P_urol ogy: 41 [facility] ? ? Urine ? Leukocyte Negative ? ? P_ur ology: 41 E[facility] 10/07/2019 Creatinine, S ? Crea 1.10 mg/dL 0.6 Liza l [facility] Serum or [address] [place] [address] Lab Plasma .25 (Internal) : mg/ [address] t 08/30/2019 PSA, Serum S High PSA, Total 35.0 NG/mL 0.0 Final [place] or Plasma -4. Hospita l Lab 0 (Internal) : NG/ [address] t 08/30/2019 Urinalysis, Urine ? Color Yellow ? ? P _urology: 41 Dipstick, Medical Reflex [facility] ? ? Urine ? Appearance Clear ? ? P_uro logy: 41 [facility] ? ? Urine ? Glucose Normal ? ? P_urolog y: 41 [facility] ? ? Urine ? Bilirubin Negative ? ? P_ur ology: 41 [facility] ? ? Urine ? Ketones Negative ? ? P_urol ogy: 41 [facility] ? ? Urine ? Specific 1.030 ? ? P_urolo gy: [address] [facility] ? ? Urine ? Blood Negative ? ? P_urolog y: 41 [facility] ? ? Urine ? Ph 5.5 ? ? P_urology: 41 [facility] ? ? Urine ? Protein Negative ? ? P_urol ogy: 41 [facility] ? ? Urine ? Urobilinogen 0.2 ? ? P_u rology: 41 [facility] ? ? Urine ? Nitrite negative ? ? P_urol ogy: 41 [facility] ? ? Urine ? Leukocyte Negative ? ? P_ur ology: 41 [address] [facility] 08/30/2019 Bladder ? Date and Time 08/30/19 ? ? P_urology: 41 Scan (PROC) 10:10 am [facility] ? ? ? Amount in 46 mL ? ? P_urol ogy: 41 Bladder [facility] Past Encounters 11/29/2019 Carcinoma of Prostate Sussy Weston MD: [address] [place] [phone], Ph. 11/19/2019 Raised Prostate Specific Antigen; Asymme try of Prostate; Prostatic Cyst; Calculus of Prostate Sussy Weston MD: [address] [place] [phone], Ph. Social History Tobacco Smoking Status Never Smoker Vaccine List Vaccine Type COVID-19, mRNA, LNP-S, PF, 100 mcg/0.5 m L dose 10/13/2020?100 mcg 11/09/2020?100 mcg Plan of Care Reminders Provider Appointments None ? ? recorded. Lab None ? ? recorded. Referral None ? ? recorded. Procedures None ? ? recorded. Surgeries None ? ? recorded. Imaging None ? ? recorded. Vitals 11/19/2019 01:00PM Office 15 Weight Blood Pressure 96.52 kg 142/86 mm[Hg] 08/30/2019 10:00AM Office 15 Weight Blood Pressure 97.52 kg 142/88 mm[Hg]
[2021-05-13 19:40] LABS: HCT 38.9 % (40.0-50.0); HGB 11.3 g/dL (13.5-17.5); MCH 23.1 pg (27.0-33.0); MCV 79.4 fL (80-95); Platelet Count 211 10^3/uL (130-400); RDW 22.6 % (11.8-14.1); RDW-SD 64.8 fL; WBC 3.94 10^3/uL (4.4-10.8)
== END 2021-05-13 11:57 | disposition home or self-care (01) ==
LOC: NCHCN 11:56
PROVIDERS: PCP Internal Medicine; Visit Provider Internal Medicine
DX: D50.9 Iron deficiency anemia, unspecified (principal)
CPT/HCPCS: 85027

== ENCOUNTER 2021-06-10 18:36 | Outpatient (REF) | payer MEDICARE, SELFPAY ==
--- NOTE | 2021-06-10 17:00 | SKI_PTH ---
PATIENT: Yudi Curry LOC: [facility] U#:[id number] AGE/SX: 75/M ROOM: RE06/10/[address]: Pete Vicente : 1945 BED: DIS: 06/10/2021 SPEC #: [id number] RECD: 06/11/21 18:37 STATUS: ALEKSANDRA REFeliciano #: [id number] GENOVEVA: 06/10/21 17:[address]: Pete Vicente DEPT: Surgical Specimen RECD BY: Reanna Martin Tissues: 1 - SKIN BIOPSY(SHAVE/PUNCH) Procedures: SKIN LEVEL 4 Comments: [id number]
== END 2021-06-10 18:37 | disposition home or self-care (01) ==
LOC: NCHCN 18:36
PROVIDERS: PCP Internal Medicine; Visit Provider Internal Medicine
DX: B07.9 Viral wart, unspecified (principal)
CPT/HCPCS: 88305

== ENCOUNTER 2021-11-03 15:58 | Outpatient (REF) | payer MEDICARE, SELFPAY ==
[2021-11-03 21:32] LABS: HCT 42.1 % (40.0-50.0); HGB 13.9 g/dL (13.5-17.5); MCH 30.5 pg (27.0-33.0); MCV 92.3 fL (80-95); MPV 12.3 fL (8.0-11.0); Platelet Count 180 10^3/uL (130-400); RBC 4.56 10^6/uL (4.36-5.78); RDW 13.4 % (11.8-14.1); RDW-SD 45.6 fL; WBC 6.56 10^3/uL (4.4-10.8)
[2021-11-03 21:50] LABS: ALT 24 U/L (16-63); AST 17 U/L (15-37); Anion Gap 10.4 mmol/L (3-11); BUN 14 mg/dL (7-18); CO2 24.6 mmol/L (21.0-32.0); Calculated LDL 81 mg/dL (<100); Chloride 108 mmol/L (98-107); Cholesterol 153 mg/dL (<200); Glucose 99 mg/dL (74-106); HDL Cholesterol 58 mg/dL (40-60); Sodium 143 mmol/L (136-145); Triglyceride 72 mg/dL (<150)
[2021-11-03 22:03] LABS: Creatine Kinase 103 U/L (39-308)
[2021-11-04 23:08] LABS: PSA, Diagnostic 0.3 ng/mL (0.0-6.5)
== END 2021-11-03 15:59 | disposition home or self-care (01) ==
LOC: NCHCN 15:58
PROVIDERS: PCP Internal Medicine; Visit Provider Internal Medicine
DX: C44.92 Squamous cell carcinoma of skin, unspecified (principal); Z85.46 Personal history of malignant neoplasm of prostate
CPT/HCPCS: 80048; 80061; 82550; 85027; 84153; 84450; 84460

== ENCOUNTER 2023-01-04 09:59 | Outpatient (REF) | payer MEDICARE, SELFPAY ==
[2023-01-04 19:53] LABS: HCT 41.2 % (40.0-50.0); HGB 13.7 g/dL (13.5-17.5); MCH 30.6 pg (27.0-33.0); MCHC 33.3 % (32.0-36.0); MCV 92 fL (80-95); Platelet Count 173 10^3/uL (130-400); RBC 4.48 10^6/uL (4.36-5.78); RDW 12.9 % (11.8-14.1); RDW-SD 43.7 fL; WBC 4.37 10^3/uL (4.4-10.8)
[2023-01-04 20:02] LABS: ALT 19 U/L (16-63); AST 22 U/L (15-37); Alkaline Phosphatase 85 U/L (46-116); Anion Gap 9.6 mmol/L (3-11); BUN 13 mg/dL (7-18); Bilirubin, Total 0.4 mg/dL (0.2-1.0); CO2 24.4 mmol/L (21.0-32.0); CREATININE 1.1 mg/dL (0.70-1.30); Calcium 9.1 mg/dL (8.5-10.1); Chloride 108 mmol/L (98-107); Estimated GFR 70.01 (mL/min/1.73m2); Glucose 107 mg/dL (74-106); Potassium 3.8 mmol/L (3.5-5.1); Sodium 142 mmol/L (136-145); Total Protein 7.5 g/dL (6.4-8.2)
== END 2023-01-04 10:00 | disposition home or self-care (01) ==
LOC: NCHCN 09:59
PROVIDERS: PCP Internal Medicine; Visit Provider Physician Assistant
DX: E78.5 Hyperlipidemia, unspecified (principal); Z86.2 Personal history of diseases of the blood and blood-forming organs and certain disorders involving the immune mechanism
CPT/HCPCS: 80053; 85027

== ENCOUNTER 2023-12-13 11:16 | Outpatient (REF) | payer MEDICARE, SELFPAY ==
[2023-12-13 21:58] LABS: Abs Immature Grans 0.01 10^3/uL (0.0-0.06); Absolute Basophil Count 0.06 10^3/uL (0.0-0.2); Absolute Eosinophil Count 0.06 10^3/uL (0.0-0.7); Absolute Lymphocyte Count 0.63 10^3/uL (1.2-3.4); Absolute Monocyte Count 0.48 10^3/uL (0.1-0.8); Absolute Neutrophil Count 3.94 10^3/uL (1.2-6.7); Basophils % 1.2 %; Eosinophils % 1.2 %; HCT 41.6 % (40.0-50.0); HGB 13.6 g/dL (13.5-17.5); Immature Grans % 0.2 %; Lymphocytes % 12.2 %; MCH 28.9 pg (27.0-33.0); MCHC 32.7 % (32.0-36.0); MCV 88 fL (80-95); Monocytes % 9.3 %; Neutrophils % 75.9 %; Platelet Count 183 10^3/uL (130-400); RBC 4.71 10^6/uL (4.36-5.78); RDW 14.2 % (11.8-14.1); RDW-SD 45.2 fL; WBC 5.18 10^3/uL (4.4-10.8)
[2023-12-13 22:19] LABS: ALT 26 U/L (16-63); AST 27 U/L (15-37); Albumin 4.2 g/dL (3.4-5.0); Alkaline Phosphatase 102 U/L (46-116); Anion Gap 10.3 mmol/L (3-11); BUN 11 mg/dL (7-18); Bilirubin, Total 0.3 mg/dL (0.2-1.0); CO2 24.7 mmol/L (21.0-32.0); CREATININE 1.2 mg/dL (0.70-1.30); Calcium 8.9 mg/dL (8.5-10.1); Chloride 107 mmol/L (98-107); Estimated GFR 62.67 (mL/min/1.73m2); Glucose 106 mg/dL (74-106); LDL CHOLESTEROL 73 mg/dL (<100); Potassium 3.7 mmol/L (3.5-5.1); Sodium 142 mmol/L (136-145); Total Protein 7.7 g/dL (6.4-8.2)
[2023-12-13 22:44] LABS: Hemoglobin A1C 6.3 % (<5.7)
== END 2023-12-13 11:17 | disposition home or self-care (01) ==
LOC: NCHCN 11:16
PROVIDERS: PCP Internal Medicine; Visit Provider Physician Assistant
DX: E78.5 Hyperlipidemia, unspecified (principal); K27.9 Peptic ulcer, site unspecified, unspecified as acute or chronic, without hemorrhage or perforation
CPT/HCPCS: 80053; 83721; 83036; 85025

== ENCOUNTER 2024-12-26 10:29 | Outpatient (REF) | payer MEDICARE, SELFPAY ==
[2024-12-26 19:55] LABS: Abs Immature Grans 0.01 10^3/uL (0.0-0.06); Absolute Basophil Count 0.03 10^3/uL (0.0-0.2); Absolute Eosinophil Count 0.06 10^3/uL (0.0-0.7); Absolute Lymphocyte Count 0.71 10^3/uL (1.2-3.4); Absolute Monocyte Count 0.44 10^3/uL (0.1-0.8); Absolute Neutrophil Count 2.78 10^3/uL (1.2-6.7); Basophils % 0.7 %; Eosinophils % 1.5 %; HCT 37.5 % (40.0-50.0); HGB 11.9 g/dL (13.5-17.5); Immature Grans % 0.2 %; Lymphocytes % 17.6 %; MCH 27.2 pg (27.0-33.0); MCHC 31.7 % (32.0-36.0); MCV 86 fL (80-95); MPV 11.5 fL (8.0-11.0); Monocytes % 10.9 %; Neutrophils % 69.1 %; Platelet Count 193 10^3/uL (130-400); RBC 4.38 10^6/uL (4.36-5.78); RDW 15.5 % (11.8-14.1); RDW-SD 48.9 fL; WBC 4.03 10^3/uL (4.4-10.8)
[2024-12-26 20:12] LABS: ALT 18 U/L (16-63); AST 23 U/L (15-37); Alkaline Phosphatase 93 U/L (46-116); Anion Gap 8.4 mmol/L (3-11); BUN 17 mg/dL (7-18); Bilirubin, Total 0.3 mg/dL (0.2-1.0); CO2 23.6 mmol/L (21.0-32.0); CREATININE 1.1 mg/dL (0.70-1.30); Calcium 8.9 mg/dL (8.5-10.1); Chloride 108 mmol/L (98-107); Estimated GFR 69.14 (mL/min/1.73m2); Glucose 111 mg/dL (74-106); Potassium 3.7 mmol/L (3.5-5.1); Sodium 140 mmol/L (136-145); Total Protein 7.4 g/dL (6.4-8.2)
[2024-12-30 10:53] LABS: Hepatitis C Ab w Rflx HCV PCR Negative (Negative)
== END 2024-12-26 10:30 | disposition home or self-care (01) ==
LOC: NCHCN 10:29
PROVIDERS: PCP Internal Medicine; Visit Provider Physician Assistant
DX: Z86.2 Personal history of diseases of the blood and blood-forming organs and certain disorders involving the immune mechanism (principal); Z09 Encounter for follow-up examination after completed treatment for conditions other than malignant neoplasm
CPT/HCPCS: 80053; 86803; 85025